=== PATIENT | female | born 1990 | race Asian ===

== ENCOUNTER 2020-04-03 04:17 | Inpatient (IN) | payer BC ==
[~2020-04-03] VITALS: Ht 149.9 cm; Wt 68.2 kg
[2020-04-03] MEDS ORDERED: MISOPROSTOL 200 MCG TABLET ONE (04:59)
[2020-04-03] MEDS ORDERED: NEWBORN KIT ONE (04:59)
[2020-04-03] MEDS ORDERED: OXYTOCIN 30U/ 0.9% NaCL 500ML 500 ML ONE ×2 (04:59→18:37)
[2020-04-03] MEDS ORDERED: LIDOCAINE 1%, 20ML ONE (04:59)
[2020-04-03] MEDS ORDERED: FENTANYL PF 100 MCG/2ML IV PRN (05:00)
[2020-04-03] MEDS ORDERED: ONDANSETRON 2MG/ML, 2ML IVPush PRN (05:00)
[2020-04-03] MEDS ORDERED: CALCIUM CARBONATE 500 MG TAB.CHEW PO PRN (05:00)
[2020-04-03] MEDS ORDERED: METOCLOPRAMIDE 5 MG/ML, 2ML IVPush PRN (05:00)
[2020-04-03] MEDS ORDERED: D5%-LACTATED RINGERS 1,000 ML IV SCH (05:00)
[2020-04-03] MEDS ORDERED: TERBUTALINE 1 MG/ML, 1ML SQ PRN (05:00)
[2020-04-03] MEDS ORDERED: MISOPROSTOL 25 MCG TABLET PO PRN (05:00)
[2020-04-03] MEDS ORDERED: TERBUTALINE 1 MG/ML, 1ML IVPush PRN (05:00)
[2020-04-03] MEDS ORDERED: MISOPROSTOL 25 MCG TABLET VG PRN (05:00)
[2020-04-03] MEDS ORDERED: ALUMINUM/MAG/SIMETHICONE 30 ML UDC PO PRN (05:00)
[2020-04-03] MEDS ORDERED: SODIUM CITRATE/CITRIC ACID 30 ML UDC PO PRN (05:00)
[2020-04-03] MEDS ORDERED: FENTANYL PF 100 MCG/2ML ONE ×2 (05:00→06:12)
[2020-04-03] MEDS ORDERED: SODIUM CHLORIDE FLUSH 10ML SYR IVF PRN (05:00)
[2020-04-03] MEDS: LACTATED RINGERS 1,000 ML IV SCH ×5 (05:07→15:10)
[2020-04-03] MEDS: FENTANYL PF 100 MCG/2ML IVPush PRN ×2 (05:12→06:17)
[2020-04-03] MEDS ORDERED: PLEASE ENTER ALLERGIES MC SCH (05:30)
[2020-04-03] MEDS ORDERED: PLEASE ENTER HEIGHT AND WEIGHT MC SCH (05:30)
[2020-04-03 05:50] VITALS: BP 130/76
[2020-04-03 06:03] LABS: BASOPHILS % (AUTO) 0 % (0-1); EOSINOPHILS % (AUTO) 1 % (1-7); LYMPHOCYTES % (AUTO) 18 % (22-44); MEAN CORPUSCULAR HEMOGLOBIN 31.3 pg (27.0-34.8); MEAN CORPUSCULAR HGB CONC 33.1 g/dL (32.4-35.8); MEAN PLATELET VOLUME 9.5 fL (7.4-10.4); MONOCYTES % (AUTO) 9 % (2-9); NEUTROPHILS % (AUTO) 71 % (42-75); PLATELET COUNT 209 x10^3/uL (130-400); RED BLOOD COUNT 4.58 x10^6/uL (3.82-5.3); RED CELL DISTRIBUTION WIDTH 14.5 % (9.6-15.2)
[2020-04-03 06:17] LABS: MD NO
[2020-04-03] MEDS ORDERED: FENTANYL/BUPIV./NS/PF 250 ML EPIDCONT ONE (06:24)
[2020-04-03] MEDS ORDERED: BUPIVACAINE 0.25% ONE (06:24)
[2020-04-03] MEDS ORDERED: EPHEDRINE 50 MG/ML, 1ML IVPush PRN (07:00)
[2020-04-03] MEDS ORDERED: LACTATED RINGERS 1,000 ML IVBOLUS PRN (07:00)
[2020-04-03] MEDS ORDERED: LACTATED RINGERS 1,000 ML IV SCH (07:00)
[2020-04-03] MEDS ORDERED: FENTANYL/BUPIV./NS/PF 250 ML EPIDCONT SCH (07:00)
[2020-04-03] MEDS ORDERED: TERBUTALINE 1 MG/ML, 1ML ONE (08:43)
[2020-04-03] MEDS ORDERED: LACTATED RINGERS 1,000 ML INTUTE PRN (09:30)
[2020-04-03] MEDS ORDERED: LACTATED RINGERS 1,000 ML INTUTE SCH (09:30)
[2020-04-03] MEDS ORDERED: OXYTOCIN 30U/ 0.9% NaCL 500ML 500 ML IV PRN (13:30)
[2020-04-03] MEDS ORDERED: IBUPROFEN 600 MG TABLET ONE (16:18)
[2020-04-03] MEDS: IBUPROFEN 600 MG TABLET PO PRN (16:18)
[2020-04-03] MEDS: OXYcodone/APAP 5/325MG TABLET PO PRN (16:18)
[2020-04-03] MEDS ORDERED: OXYcodone/APAP 5/325MG TABLET ONE (16:18)
[2020-04-03] MEDS ORDERED: OXYcodone IR 5MG TABLET PO PRN (16:30)
[2020-04-03] MEDS ORDERED: ONDANSETRON 2MG/ML, 2ML IV PRN (16:30)
[2020-04-03] MEDS ORDERED: MISOPROSTOL 200 MCG TABLET PR PRN (16:30)
[2020-04-03] MEDS ORDERED: SIMETHICONE 80 MG CHEW TAB PO PRN (16:30)
[2020-04-03] MEDS: OXYTOCIN 30U/ 0.9% NaCL 500ML 500 ML IV SCH (18:41)
[2020-04-03 19:40] VITALS: BP 118/77
[2020-04-04 00:35] VITALS: BP 104/64
[2020-04-04] MEDS: IBUPROFEN 600 MG TABLET PO PRN ×3 (00:46→14:34)
[2020-04-04 01:38] LABS: BASOPHILS % (AUTO) 1 % (0-1); EOSINOPHILS % (AUTO) 1 % (1-7); LYMPHOCYTES % (AUTO) 10 % (22-44); MEAN CORPUSCULAR HEMOGLOBIN 31.2 pg (27.0-34.8); MEAN CORPUSCULAR HGB CONC 32.8 g/dL (32.4-35.8); MEAN PLATELET VOLUME 9.1 fL (7.4-10.4); MONOCYTES % (AUTO) 7 % (2-9); NEUTROPHILS % (AUTO) 82 % (42-75); PLATELET COUNT 157 x10^3/uL (130-400); RED BLOOD COUNT 3.71 x10^6/uL (3.82-5.3); RED CELL DISTRIBUTION WIDTH 14.5 % (9.6-15.2)
[2020-04-04 01:42] LABS: MD NO
[2020-04-04] MEDS: OXYTOCIN 30U/ 0.9% NaCL 500ML 500 ML IV SCH ×2 (02:30→12:30)
[2020-04-04 03:30] VITALS: BP 107/70
[2020-04-04] MEDS ORDERED: IBUP-1222 PO (07:03)
[2020-04-04] MEDS: OXYcodone/APAP 5/325MG TABLET PO PRN ×2 (07:11→14:34)
[2020-04-04 07:25] VITALS: BP 110/71
[2020-04-04] MEDS: DOCUSATE 100 MG CAPSULE PO PRN (08:27)
[2020-04-04] MEDS: PRENATAL VIT/IRON/FA 1 EACH TABLET PO SCH (08:27)
[2020-04-04 12:10] VITALS: BP 121/82
[2020-04-04 20:00] VITALS: BP 111/76
[2020-04-05] MEDS: IBUPROFEN 600 MG TABLET PO PRN ×2 (00:23→10:00)
[2020-04-05] MEDS: OXYcodone/APAP 5/325MG TABLET PO PRN ×3 (00:24→10:01)
[2020-04-05 07:45] VITALS: BP 112/84
[2020-04-05] MEDS ORDERED: DIPH,PERTUSS(ACELL),TET VAC/PF NC IM-VACC ONE ×2 (08:58→09:00)
[2020-04-05] MEDS: PRENATAL VIT/IRON/FA 1 EACH TABLET PO SCH (10:00)
[2020-04-05] MEDS: DOCUSATE 100 MG CAPSULE PO PRN (10:00)
== END 2020-04-05 10:45 | disposition home or self-care (01) | DRG 807 ==
LOC: LDOP 04:17 → LDIP 04:51 → 2NW 19:00
PROVIDERS: ADMIT Obstetrics & Gynecology; ATTEND Obstetrics & Gynecology
PROC: 10E0XZZ Delivery of Products of Conception, External Approach (ICD-10-PCS; principal; 2020-04-03)
PROC: 3E0R3BZ Introduction of Anesthetic Agent into Spinal Canal, Percutaneous Approach (ICD-10-PCS; 2020-04-03)
PROC: 00HU33Z Insertion of Infusion Device into Spinal Canal, Percutaneous Approach (ICD-10-PCS; 2020-04-03)
PROC: 0HQ9XZZ Repair Perineum Skin, External Approach (ICD-10-PCS; 2020-04-03)
DX: O69.1XX0 Labor and delivery complicated by cord around neck, with compression, not applicable or unspecified (principal); Z37.0 Single live birth; O24.429 Gestational diabetes mellitus in childbirth, unspecified control; Z20.828 Contact with and (suspected) exposure to other viral communicable diseases; Z3A.38 38 weeks gestation of pregnancy; O70.0 First degree perineal laceration during delivery
CPT/HCPCS: 36415; 85025; 86592; 86850; 86900; 87635; 89060; 90715; G0378; J3010; J2590; J7120; Q0114